=== PATIENT | male | born 1985 | race Caucasian/White ===

== ENCOUNTER 2021-02-23 18:02 | Emergency (ER) | payer OTHER ==
[~2021-02-23] VITALS: Ht 167.6 cm; Wt 72.6 kg
== END 2021-02-23 19:36 | disposition home or self-care (01) ==
LOC: ER 18:02
DX: L02.213 Cutaneous abscess of chest wall (principal)

== ENCOUNTER → 2021-08-13 | Emergency (ER) | payer OTHER ==
[~2021-08-13] VITALS: Ht 198.1 cm; Wt 74.8 kg
== END | disposition left against medical advice (07) ==
LOC: ER 04:28
DX: G43.809 Other migraine, not intractable, without status migrainosus (principal)